=== PATIENT | female | born 1995 | race Caucasian/White ===

== ENCOUNTER 2016-10-23 12:04 | Emergency (ER) | payer BC ==
[~2016-10-23] VITALS: Ht 157.5 cm; Wt 59.1 kg
[2016-10-23 12:06] VITALS: BP 144/86; TEMP 97.9
[2016-10-23] MEDS ORDERED: ALDACTONE 100M100 MG PO (12:10)
[2016-10-23 13:30] VITALS: PULSE 91
== END 2016-10-23 13:30 | disposition home or self-care (01) ==
LOC: COL.ER 12:04
DX: S30.23XA Contusion of vagina and vulva, initial encounter (principal); X58.XXXA Exposure to other specified factors, initial encounter; Y92.002 Bathroom of unspecified non-institutional (private) residence as the place of occurrence of the external cause

== ENCOUNTER 2017-12-06 14:44 | Emergency (ER) | payer BC ==
[~2017-12-06] VITALS: Ht 157.5 cm; Wt 59.1 kg
[~2017-12-06 14:44] MED LIST: ALDACTONE 100M100 MG PO
[2017-12-06 14:46] VITALS: BP 129/90; PULSE 94; TEMP 98.1
[2017-12-06 15:40] LABS: BASO % 0.4 % (0.0-2.0); EOS % 0.4 % (0-4.0); GRAN # 4.6 (1.4-6.5); GRAN % 65.7 % (42.2-75.2); HEMATOCRIT 40.9 % (37.0-47.0); HEMOGLOBIN 13.9 g/dl (12.5-16.0); LYMPH # 1.8 (1.2-3.4); MEAN CELL VOLUME 85 fl (80.0-100.0); MEAN CORPUSCULAR HEMOGLOBIN 29 pg (27.0-31.0); MEAN CORPUSCULAR HGB CONC 34 g/dl (33.0-37.0); MEAN PLATELET VOLUME 9.3 fl (7.4-10.4); MONO # 0.6 (0.1-0.6); MONO % 8.4 % (1.7-9.3); PLATELET COUNT 299 K/mm3 (130-400); RED BLOOD COUNT 4.79 M/mm3 (4.10-5.30); REDCELL DISTRIBUTION WIDTH-CV 11.6 % (11.5-14.5)
[2017-12-06 15:53] LABS: COLLECTION METHOD CLEAN CATCH
[2017-12-06 15:53] LABS: ALBUMIN 4.3 gm/dL (3.5-5.0); BILIRUBIN,TOTAL 0.7 mg/dL (0.0-1.0); CALCIUM 9.6 mg/dL (8.4-10.2); CREATININE, serum 0.89 mg/dL (0.52-1.25); TOTAL PROTEIN 8.2 gm/dL (6.4-8.2)
[2017-12-06 15:54] LABS: C-REACTIVE PROTEIN 0.5 mg/dL (0.0-0.9)
[2017-12-06 16:03] LABS: MUCOUS Present /lpf; PH 6 (5-8); SQUAMOUS EPITHELIAL 0-2 /hpf; URINE APPEARANCE Clear; URINE BACTERIA None Seen /hpf; URINE BILIRUBIN Negative (NEGATIVE); URINE BLOOD Negative (NEGATIVE); URINE COLOR Yellow; URINE GLUCOSE Negative (NEGATIVE); URINE KETONE Negative (NEGATIVE); URINE LEUKOCYTE ESTERASE Negative (NEGATIVE); URINE NITRATE Negative (NEGATIVE); URINE PROTEIN(semi-quant) Negative (NEGATIVE); URINE RBC 0-2 /hpf
== END 2017-12-06 16:28 | disposition home or self-care (01) ==
LOC: COL.ER 14:44
PROVIDERS: Physician Assistant
DX: R07.89 Other chest pain (principal); Z90.49 Acquired absence of other specified parts of digestive tract

== ENCOUNTER → 2018-08-23 | Outpatient (CLI) | payer BC | LOC: COL.LAB 13:58 | DX: R19.4 Change in bowel habit (principal); R19.7 Diarrhea, unspecified; R11.0 Nausea; R10.13 Epigastric pain ==

== ENCOUNTER → 2019-11-19 | Outpatient (CLI) | payer BC | LOC: MC.RAD 10:15 | DX: N63.21 Unspecified lump in the left breast, upper outer quadrant (principal) ==